=== PATIENT | female | born 1985 | race Two or more races ===

== ENCOUNTER 2019-11-17 03:19 | Emergency (ER) | payer OTHER ==
[2019-11-17 03:32] VITALS: TEMP 99.1; BMI 36.0
--- NOTE | 2019-11-17 03:36 | PDOC ---
History of Present Illness - General Chief Complaint: Chest Pain Stated Complaint: CHEST PAIN Time Seen by Provider: 11/17/19 03:36 Attending Attestation - Resident Resident Name: LukaszLondonbetty Bernardo - ED Attending Attestation I have performed the following: I have examined & evaluated the patient, The case was reviewed & discussed with the resident, I agree w/resident's findings & plan - HPI HPI: 11/17/19 04:42 Pt comes with chest pain. She has a hx of anxiety, but states that she has CP and she used all her calming and coping techniques, yet she feels tachycardic and stressed. - Physicial Exam PE: 11/17/19 04:43 Agree with resident exam Heart tachy lungs CTA B abd soft NT ND + BS no flank pain - Medical Decision Making 11/17/19 04:46 CXR pending labs pending EKG NSR Past History - Medical History Allergies/Adverse Reactions: Allergies Allergy/AdvReac Type Severity Reaction Status Date / Time No Known Allergies Allergy Verified 11/17/19 03:44 Home Medications: Ambulatory Orders Nitrofurantoin Monohyd/M-Cryst [Macrobid -] 100 mg PO BID 3 Days #6 capsule 11/17/19 - Psycho-Social/Smoking History Smoking History: Never smoked Have you smoked in the past 12 months: No Information on smoking cessation initiated: No - Substance Abuse Hx (Audit-C & DAST Scrn) How often the patient has a drink containing alcohol: Never Score: In Men: 4 or > Positive; In Women: 3 or > Positive: 0 Screen Result (Pos requires Nsg. Audit-10AR): Negative In the last yr the pt used illegal drug/Rx for NonMed reason: No Score: Yes response is considered Positive: 0 Screen Result (Positive result requires Nsg. DAST-10): Negative *Physical Exam - Vital Signs Last Vital Signs Temp Pulse Resp BP Pulse Ox 99.1 F 108 H 20 101/50 L 99 11/17/19 03:27 11/17/19 03:27 11/17/19 03:27 11/17/19 03:27 11/17/19 03:27 Heart Score/ECG Review - ECG Intrepretation Rhythm: Regular Rhythm - [place]: Normal - P and VA Prominent R with upright T in V1 (true posterior VA): No Delta Wave(s) Present: No WPW: No - QRS Poor R Wave Progression: No Q Wave Present: No - ST and T Early Repolarization: No Non Specific ST-T Wave changes: No - ECG Impressions Normal ECG: Yes Non-specific ST Elevation: No Ischemic Changes: No Bradycardia: No Torsades harini Pointes: No WPW: No ED Treatment Course - LABORATORY CBC & Chemistry Diagram: 11/17/19 04:02 11/17/19 04:02 Medical Decision Making - Medical Decision Making 11/17/19 05:16 Pt comes with chest pain; cxr normal; labs noraml Pt has a slight UTI; she will be 3 days of macrobid. She will be asked to follow with PMD Discharge - Discharge Information Problems reviewed: Yes Clinical Impression/Diagnosis: UTI (urinary tract infection), Atypical chest pain Condition: Improved Disposition: HOME - Admission No - Additional Discharge Information Prescriptions: Nitrofurantoin Monohyd/M-Cryst [Macrobid -] 100 mg PO BID 3 Days #6 capsule - Follow up/Referral Referrals: Gracie Hall DO [Primary Care Provider] - - Patient Discharge Instructions Patient Printed Discharge Instructions: DI for Atypical Chest Pain, Urinary Tract Infection - Post Discharge Activity
[2019-11-17 04:26] LABS: BASO % 0.9 % (0-2.0); EOS % 0.9 % (0-4.5); HEMATOCRIT 34.6 % (32.4-45.2); HEMOGLOBIN 11.1 GM/dL (10.7-15.3); LYMPH % 22.2 % (8-40); MCH 25.9 pg (25.7-33.7); MCHC 32.2 g/dl (32.0-36.0); MEAN CELL VOLUME 80.4 fl (80-96); MEAN PLT VOLUME 9.3 fl (7.5-11.1); MONO % 7.5 % (3.8-10.2); NEUT % 68.5 % (42.8-82.8); PLATELET COUNT 320 K/MM3 (134-434); RDW 16.5 % (11.6-15.6)
--- NOTE | 2019-11-17 04:47 | PDOC ---
History of Present Illness - General Chief Complaint: Chest Pain Stated Complaint: CHEST PAIN Time Seen by Provider: 11/17/19 03:36 - History of Present Illness Initial Comments: 11/17/19 04:35 34yo F no PMH p/w CP since this morning. It started when she woke up and has persisted throughout the day. it is substernal and radiates to the base of her neck. It was associated w/ mild tingling of her left arm. She describes it as pr essure, made worse by bending over and walking around and relieved by lying down/relaxing. 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 ROS CONSTITUTIONAL: Absent: fever, chills, diaphoresis, generalized weakness, malaise, loss of appetite HEENT: Absent: rhinorrhea, nasal congestion, throat pain, throat swelling, difficulty swallowing, mouth swelling, ear pain, eye pain, visual Changes CARDIOVASCULAR: Absent: syncope, palpitations, irregular heart rate, lightheadedness RESPIRATORY: Absent: cough, shortness of breath, dyspnea with exertion GASTROINTESTINAL: Absent: abdominal pain, abdominal distension, nausea, vomiting, diarrhea, GENITOURINARY: Absent: dysuria, frequency, urgency, hesitancy, hematuria, flank pain MUSCULOSKELETAL: Absent: myalgia SKIN: Absent: rash, itching, pallor HEMATOLOGIC/IMMUNOLOGIC: Absent: easy bleeding, easy bruising, lymphadenopathy, frequent infections ENDOCRINE: Absent: unexplained weight gain, unexplained weight loss, heat intolerance, cold intolerance NEUROLOGIC: Absent: headache, focal weakness or paresthesias PSYCHIATRIC: Absent: anxiety, depression, suicidal or homicidal ideation, hallucinations. PE GENERAL: Well developed, well nourished. Awake and alert. No acute distress. HEENT: Normocephalic, atraumatic. PERRLA, EOMI. No conjunctival pallor. Sclera are non-icteric. Moist mucous membranes. Oropharynx is clear. NECK: Supple. Full ROM. No thyromegaly. No lymphadenopathy. CARDIOVASCULAR: Tachycardic rate and regular rhythm. No murmurs, rubs, or gallops. Distal pulses are 2+ and symmetric. PULMONARY: No evidence of respiratory distress. Lungs clear to auscultation bilaterally. No wheezing, rales or rhonchi. ABDOMINAL: Soft. Non-tender. Non-distended. No rebound or guarding. No organomegaly. Normoactive bowel sounds. MUSCULOSKELETAL Normal range of motion at all joints. No bony deformities or tenderness. No CVA tenderness. EXTREMITIES: No cyanosis. No clubbing. No edema. No calf tenderness. SKIN: Warm and dry. Normal capillary refill. No rashes. No jaundice. NEUROLOGICAL: Alert, awake, appropriate. PSYCHIATRIC: Cooperative. Good eye contact. Appropriate mood and affect. 34yo otherwise healthy F w/ anterior chest pressure and no other sx and FHx of thyroid problems. CBC, CMP, EKG, Troponin, TSH, CXR Found small UTI. Will send macrobid x3days and dc home. 11/17/19 05:25 Past History - Medical History Allergies/Adverse Reactions: Allergies Allergy/AdvReac Type Severity Reaction Status Date / Time No Known Allergies Allergy Verified 11/17/19 03:44 Home Medications: Ambulatory Orders Nitrofurantoin Monohyd/M-Cryst [Macrobid -] 100 mg PO BID 3 Days #6 capsule 11/17/19 - Psycho-Social/Smoking History Smoking History: Never smoked Have you smoked in the past 12 months: No Information on smoking cessation initiated: No - Substance Abuse Hx (Audit-C & DAST Scrn) How often the patient has a drink containing alcohol: Never Score: In Men: 4 or > Positive; In Women: 3 or > Positive: 0 Screen Result (Pos requires Nsg. Audit-10AR): Negative In the last yr the pt used illegal drug/Rx for NonMed reason: No Score: Yes response is considered Positive: 0 Screen Result (Positive result requires Nsg. DAST-10): Negative *Physical Exam - Vital Signs Last Vital Signs Temp Pulse Resp BP Pulse Ox 99.1 F 108 H 20 101/50 L 99 11/17/19 03:27 11/17/19 03:27 11/17/19 03:27 11/17/19 03:27 11/17/19 03:27 ED Treatment Course - LABORATORY CBC & Chemistry Diagram: 11/17/19 04:02 11/17/19 04:02 - ADDITIONAL ORDERS Additional order review: Laboratory Results 11/17/19 11/17/19 04:10 04:02 Sodium 138 Potassium 3.8 Chloride 106 Carbon Dioxide 26 Anion Gap 6 L BUN 13.0 Creatinine 0.8 Est GFR (CKD-EPI)AfAm 112.27 Est GFR (CKD-EPI)NonAf 96.87 Random Glucose 105 Calcium 8.5 Total Bilirubin 0.2 AST 14 L ALT 22 Alkaline Phosphatase 94 Creatine Kinase 149 Troponin I < 0.02 Total Protein 7.9 Albumin 3.8 TSH 3.14 Urine Color Yellow Urine Appearance Clear Urine pH 5.5 Ur Specific [place] 1.007 L Urine Protein Negative Urine Glucose (UA) Negative Urine Ketones Negative Urine Blood Negative Urine Nitrite Negative Urine Bilirubin Negative Urine Urobilinogen 0.2 Ur Leukocyte Esterase Trace Urine WBC (Auto) 27 Urine RBC (Auto) 3 Urine Casts (Auto) 0 U Epithel Cells (Auto) 20 Urine Bacteria (Auto) 320 Urine HCG, Qual Negative 11/17/19 04:02 RBC 4.30 MCV 80.4 MCHC 32.2 RDW 16.5 H MPV 9.3 Neutrophils % 68.5 Lymphocytes % 22.2 Monocytes % 7.5 Eosinophils % 0.9 Basophils % 0.9 Discharge - Discharge Information Problems reviewed: Yes Clinical Impression/Diagnosis: Atypical chest pain UTI (urinary tract infection) Qualifiers: Urinary tract infection type: site unspecified Condition: Good Disposition: HOME - Admission No - Additional Discharge Information Prescriptions: Nitrofurantoin Monohyd/M-Cryst [Macrobid -] 100 mg PO BID 3 Days #6 capsule - Follow up/Referral Referrals: Gracie Hall DO [Primary Care Provider] - - Patient Discharge Instructions Patient Printed Discharge Instructions: Urinary Tract Infection, DI for Atypical Chest Pain Additional Instructions: You came to the ED w/ Chest Pain. We tested your blood, looked at your heart's electrical rhythm, and we tested to your urine. We found a small urinary tract infection (UTI), so we sent Macrobid (Nitrofurantoin, an antibiotic) to [facility]. Please follow up with your PCP within seven days of discharge, and please return to the ED with any new, worsening, or severe symptoms. - Post Discharge Activity
[2019-11-17 04:48] LABS: EPI CELLS 20 /uL (0-25.1); HCG,QUALITATIVE URINE Negative; HYALINE CASTS 0 /uL (0-3.1); PH,URINE 5.5 (5.0-8.0); URINE APPEARANCE CLEAR; URINE BACTERIA 320 /uL (0-1359); URINE BILIRUBIN NEGATIVE (NEGATIVE); URINE COLOR YELLOW; URINE GLUCOSE (UA) NEGATIVE (NEGATIVE); URINE KETONE NEGATIVE (NEGATIVE); URINE LEUK ESTERASE TRACE (NEGATIVE); URINE NITRITE NEGATIVE (NEGATIVE); URINE PROTEIN NEGATIVE (NEGATIVE); URINE RBC 3 /uL (0-23.9); URINE UROBILINOGEN 0.2 mg/dL (0.2-1.0); URINE WBC 27 /uL (0-25.8)
[2019-11-17 04:52] LABS: ALBUMIN 3.8 g/dl (3.4-5.0); ALK PHOS 94 U/L (45-117); CALCIUM 8.5 mg/dL (8.5-10.1); CO2 26 mmol/L (21-32); CREATININE 0.8 mg/dL (0.55-1.3); GLUCOSE,RANDOM 105 mg/dL (74-106); SGOT/AST 14 U/L (15-37); SGPT/ALT 22 U/L (13-61); SODIUM 138 mmol/L (136-145); TOT PROT 7.9 g/dl (6.4-8.2)
[2019-11-17 04:56] LABS: ANION GAP 6 MMOL/L (8-16); BILIRUBIN,TOTAL 0.2 mg/dL (0.2-1); CHLORIDE 106 mmol/L (98-107); POTASSIUM 3.8 mmol/L (3.5-5.1)
[2019-11-17 05:33] VITALS: BP 118/78; PULSE 88
--- NOTE | 2019-11-18 10:02 | EKG ---
Test Reason : Blood Pressure : / mmHG Vent. Rate : 081 BPM Atrial Rate : 081 BPM P-R Int : 188 ms QRS Dur : 082 ms QT Int : 400 ms P-R-T Axes : 052 029 046 degrees QTc Int : 464 ms NORMAL SINUS RHYTHM NORMAL ECG WHEN COMPARED WITH ECG OF 01-NOV-2007 10:44, NO SIGNIFICANT CHANGE WAS FOUND Confirmed by Justin Araiza ([id number]) on 11/18/2019 10:01:49 AM Referred By: Confirmed By:Justin Araiza
== END 2019-11-17 05:33 | disposition home or self-care (01) ==
LOC: JER 03:19
DX: R07.89 Other chest pain (principal); N39.0 Urinary tract infection, site not specified
CPT/HCPCS: 36415; 71046-TC-FY; 80053; 81003; 82550; 84443; 84484; 84703; 85025; 93005; 93010; 99285-25